=== PATIENT | male | born 1960 | race Caucasian/White ===

== ENCOUNTER 2017-08-25 14:24 | Inpatient (IN) | payer BC ==
[2017-08-25] VITALS (9 sets, daily range): BP systolic 103–128; BP diastolic 55–81
[~2017-08-25] VITALS: Ht 182.9 cm; Wt 150.7 kg
[~2017-08-25 14:24] MED LIST: AMLO5TAB2 PO; ASP325TEC PO; LISI40TA PO; LORA1TAB PO; TRIA0.253 PO
--- OUTSIDE RECORDS SUMMARY | 2017-08-25 14:29 | XMS REPORT | Continuity of Care Document ---
Author Author [facility] Organization [facility] Address Unknown Phone Unavailable Allergies Active Description Code Type Severity Reaction Onset Reported/Identified Relationship to Patient Clinical Status Yes No Allergy Information Available [id number] Drug Allergy Unknown N/A 03/16/2011 Medications Problems Date Dx Coded Attending Type Code Diagnosis Diagnosed By 03/16/2011 Ot 272.4 03/16/2011 Ot 278.00 03/16/2011 Ot 401.9 03/16/2011 Ot 414.01 03/16/2011 Ot 786.09 03/16/2011 Ot 786.50 03/16/2011 Ot V17.49 03/16/2011 Ot V58.69 03/16/2011 Ot V85.41 03/20/2013 MAMIE DAVILA MD Ot 327.23 03/20/2013 MAMIE DAVILA MD Ot 327.51 07/27/2015 Ot 272.4 07/27/2015 Ot 397.0 07/27/2015 Ot 401.9 07/27/2015 Ot 424.0 07/27/2015 Ot 429.3 07/27/2015 Ot 786.50 07/27/2015 MAMIE DAVILA MD Ot M79.1 07/27/2015 MAMIE DAVILA MD Ot R05 07/27/2015 MAMIE DAVILA MD Ot R50.9 08/04/2015 MAMIE DAVILA MD Ot M79.1 08/04/2015 MAMIE DAIVLA MD Ot R05 08/04/2015 MAMIE DAVILA MD Ot R50.9 08/31/2015 MAMIE DAVILA MD Ot J18.9 Procedures Results Encounters ACCT No. Visit Date/Time Discharge Status Pt. Type Provider Facility Loc./Unit Complaint [id number] 07/27/2015 15:36:00 2014 23:59:59 CLS Outpatient MAMIE DAVILA MD [facility] RAD [id number] 07/18/2015 16:27:00 2014 23:59:59 CLS Outpatient MAMIE DAVILA MD [facility] RAD [id number] 03/19/2013 20:04:00 2012 06:30:00 DIS Outpatient MAMIE DAVILA MD [facility] SLEEP [id number] 03/16/2011 08:08:00 Document Registration [id number] 03/06/2011 08:28:00 Document Registration
[2017-08-25] MEDS ORDERED: morphine INJ 10 MG/ML 1ML (SYR OR VIAL) IVP ONE (14:30)
[2017-08-25] MEDS ORDERED: ONDANSETRON 4 MG/2 ML (SDV) Z0FRAN IVP ONE (14:30)
--- NOTE | 2017-08-25 14:32 | ED General ---
General Stated Complaint: FALL Source of Information: Patient Exam Limitations: No Limitations History of Present Illness Time Seen by Provider: 14:32 Initial Comments To ER per private vehicle with reports of left sided chest wall pain. Patient was 4-5 feet up on a ladder trimming tree branches when one of the branches fell knocking the ladder from beneath him. He landed on his left side. He denies hitting his head or any neck pain. Complains of severe left-sided chest wall pain, worse with deep breathing as well as shortness of breath. Has some abrasions to the left arm. Timing/Duration: 1/2 Hour Severity: Moderate Associated Systoms: Shortness of Air Allergies and Home Medications Allergies Coded Allergies: No Allergy Information Available (Unverified , 03/16/11) Home Medications Amlodipine Besylate 5 Mg Tablet, 5 MG PO DAILY WITH SUPPER, (Reported) Lisinopril 40 Mg Tablet, 40 MG PO DAILY, (Reported) Trazodone HCl 100 Mg Tablet, (Reported) Zolpidem Tartrate 10 Mg Tablet, (Reported) Constitutional: see HPI EENTM: see HPI Respiratory: no symptoms reported Cardiovascular: no symptoms reported Genitourinary: no symptoms reported Musculoskeletal: no symptoms reported Skin: no symptoms reported Psychiatric/Neurological: No Symptoms Reported Hematologic/Lymphatic: No Symptoms Reported Past Ohjfjlx-Nkdkxp-Wfmbbo Hx Patient Social History Recent Foreign Travel: No Contact w/Someone Who Travel: No Physical Exam Vital Signs Vital Sign - Last 12Hours 08/25/17 08/25/17 14:24 15:30 Temp 98.0 Pulse 86 Resp 18 B/P (MAP) 104/81 (89) Pulse Ox 97 O2 Delivery Nasal Cannula O2 Flow Rate 2.00 Capillary Refill : General Appearance: No Apparent Distress, WD/WN Eyes: Bilateral Eye Normal Inspection, Bilateral Eye PERRL, Bilateral Eye EOMI HEENT: PERRL/EOMI, TMs Normal Neck: Full Range of Motion, Normal Inspection Respiratory: No Accessory Muscle Use, No Respiratory Distress, Other (slightly diminished sounds on the left, no crepitus upon palpation of the chest wall no abrasion or ecchymosis of the chest wall. However is exquisitely tender to the left lateral chest wall.) Gastrointestinal: Normal Bowel Sounds, Non Tender, Soft Neurologic/Psychiatric: Alert, Oriented x3, No Motor/Sensory Deficits Skin: Normal Color, Warm/Dry Progress/Results/Core Measures Suspected Sepsis SIRS Temperature: Pulse: Respiratory Rate: Laboratory Tests 08/25/17 14:25: White Blood Count 21.6H Blood Pressure / Mean: Laboratory Tests 08/25/17 14:25: Creatinine 1.05, Platelet Count 447H, Total Bilirubin 0.5 Results/Orders Lab Results Laboratory Tests Test 08/25/17 14:25 Range/Units White Blood Count 21.6 H 4.3-11.0 10^3/uL Red Blood Count 5.31 4.35-5.85 10^6/uL Hemoglobin 15.2 13.3-17.7 G/DL Hematocrit 46 40-54 % Mean Corpuscular Volume 87 80-99 FL Mean Corpuscular Hemoglobin 29 25-34 PG Mean Corpuscular Hemoglobin Concent 33 32-36 G/DL Red Cell Distribution Width 13.3 10.0-14.5 % Platelet Count 447 H 130-400 10^3/uL Mean Platelet Volume 9.7 7.4-10.4 FL Neutrophils (%) (Auto) 76 H 42-75 % Lymphocytes (%) (Auto) 19 12-44 % Monocytes (%) (Auto) 4 0-12 % Eosinophils (%) (Auto) 1 0-10 % Basophils (%) (Auto) 1 0-10 % Neutrophils # (Auto) 16.4 H 1.8-7.8 X 10^3 Lymphocytes # (Auto) 4.1 H 1.0-4.0 X 10^3 Monocytes # (Auto) 0.9 0.0-1.0 X 10^3 Eosinophils # (Auto) 0.2 0.0-0.3 10^3/uL Basophils # (Auto) 0.1 0.0-0.1 10^3/uL Neutrophils % (Manual) 81 % Lymphocytes % (Manual) 17 % Monocytes % (Manual) 2 % Blood Morphology Comment NORMAL Sodium Level 141 135-145 MMOL/L Potassium Level 4.0 3.6-5.0 MMOL/L Chloride Level 104 98-107 MMOL/L Carbon Dioxide Level 25 21-32 MMOL/L Anion Gap 12 5-14 MMOL/L Blood Urea Nitrogen 22 H 7-18 MG/DL Creatinine 1.05 0.60-1.30 MG/DL Estimat Glomerular Filtration Rate > 60 BUN/Creatinine Ratio 21 Glucose Level 181 H 70-105 MG/DL Calcium Level 9.9 8.5-10.1 MG/DL Total Bilirubin 0.5 0.1-1.0 MG/DL Aspartate Amino Transf (AST/SGOT) 22 5-34 U/L Alanine Aminotransferase (ALT/SGPT) 29 0-55 U/L Alkaline Phosphatase 45 40-136 U/L Total Protein 7.8 6.4-8.2 GM/DL Albumin 4.1 3.2-4.5 GM/DL My Orders Orders - TATY JUNG APRN Ct Chest/Abdomen/Pelvis W (08/25/17 14:29) Chest 1 View, Ap/Pa Only (08/25/17 14:29) Saline Lock/Iv-Start (08/25/17 14:29) Cbc With Automated Diff (08/25/17 14:29) Comprehensive Metabolic Panel (08/25/17 14:29) Morphine Injection (Morphine Injection (08/25/17 14:30) Ondansetron Injection (Zofran Injectio (08/25/17 14:30) Ns Iv 1000 Ml (Sodium Chloride 0.9%) (08/25/17 14:45) Humerus, Left, 2 Views (08/25/17 14:32) Manual Differential (08/25/17 14:25) Iohexol Injection (Omnipaque 350 Mg/Ml 1 (08/25/17 15:00) Ns (Ivpb) (Sodium Chloride 0.9% Ivpb Bag (08/25/17 15:00) Hydromorphone Injection (Dilaudid Inject (08/25/17 15:15) Oxygen-Administer 07,19 (08/25/17 15:06) Incentive Spirometryrt Initial (08/25/17 15:06) Incentive Spirometry (Nursing) Q2H (08/25/17 15:06) Hydromorphone Injection (Dilaudid Inject (08/25/17 15:30) Medications Given in ED Current Medications Medications Dose Ordered Sig/Rober Route Start Time Stop Time Status Last Admin Dose Admin Iohexol 100 ml ONCE ONCE IV 08/25/17 15:00 08/25/17 15:01 DC 08/25/17 14:58 100 ML Morphine Sulfate 5 mg ONCE ONCE IVP 08/25/17 14:30 08/25/17 14:31 DC 08/25/17 14:39 5 MG Ondansetron HCl 4 mg ONCE ONCE IVP 08/25/17 14:30 08/25/17 14:31 DC 08/25/17 14:38 4 MG Sodium Chloride 100 ml ONCE ONCE IV 08/25/17 15:00 08/25/17 15:01 DC 08/25/17 14:58 80 ML Vital Signs/I&O Vital Sign - Last 12Hours 08/25/17 08/25/17 14:24 15:30 Temp 98.0 Pulse 86 Resp 18 B/P (MAP) 104/81 (89) Pulse Ox 97 O2 Delivery Nasal Cannula O2 Flow Rate 2.00 Capillary Refill : Diagnostic Imaging Diagonstic Imaging: CT Comments ALEJANDRO: [facility] REC#: [id number] PT STATUS: ADM IN : 1960 PHYSICIAN: TATY JUNG APRN ADMIT DATE: 08/25/17/ICU Draft Date of Exam:08/25/17 CT CHEST/ABDOMEN/PELVIS W PROCEDURE: CT chest, abdomen, and pelvis with contrast. TECHNIQUE: Multiple contiguous axial images were obtained through the chest, abdomen, and pelvis after the administration of intravenous contrast. INDICATION: Fall, pain. COMPARISON: None available. FINDINGS: No significant adenopathy within the chest. No aneurysmal dilatation of the thoracic aorta. No pericardial effusion. No significant pleural effusion. Tiny left-sided pneumothorax is noted. No mediastinal shift. No right-sided pneumothorax. 8 mm pulmonary nodule is noted within the right middle lobe, series 2, image 24. Low lung volumes. Mild dependent atelectasis. No additional focal pulmonary opacity. Fatty infiltration of the liver. Cholecystectomy. The spleen is unremarkable. The adrenal glands are unremarkable. The pancreas is unremarkable. 1.7 cm hypodensity within the central aspect of the left kidney. Otherwise, the left kidney is unremarkable. The right kidney is unremarkable. No aneurysmal dilatation of the abdominal aorta. Moderate sized fat-containing umbilical hernia. The urinary bladder is unremarkable. Mild colonic diverticulosis without CT evidence of diverticulitis. The appendix is unremarkable. No bowel obstruction or pneumatosis. No significant adenopathy, free air or free fluid within the abdomen or pelvis. Nondisplaced acute left posterolateral fourth, fifth, and sixth rib fractures. Small amount of adjacent gas is seen by these fractures. No additional acute osseous abnormality. IMPRESSION: 1. Tiny left pneumothorax without evidence of tension phenomenon. This pneumothorax is secondary to nondisplaced acute left fourth, fifth and sixth rib fractures. 2. There is an 8 mm pulmonary nodule within the right middle lobe, of uncertain etiology. Comparison to prior imaging is recommended. If no prior imaging is available to demonstrate stability of this pulmonary nodule for greater than two years, then a followup CT of the chest is recommended in three months to monitor stability. 3. Additional findings as above. Dictated on workstation # [id number] Dict: 08/25/17 1516 Trans: 08/25/17 1559 [facility] [id number] Interpreted by: ASHLI MAI MD Electronically signed by: Departure Communication (Admissions) Time/Spoke to Admitting Phy: 15:33 Communication I discussed the case with Dr. Lopez. We will admit the patient, repeat chest x- ray in a.m. Impression Impression: Primary Impression: Pneumothorax, left Additional Impressions: Fall Left rib fracture Disposition: ADMITTED INPATIENT Condition: Stable Admissions Decision to Admit Reason: Admit from ER (General) Decision to Admit/Date: Aug 25, 2017 Time/Decision to Admit Time: 15:18 Departure-Patient Inst. Decision time for Depature: 15:18 Referrals: MAMIE DAVILA MD (PCP/Family) Primary Care Physician TATY JUNG APRN Aug 25, 2017 14:32
[2017-08-25 14:37] LABS: BASOPHILS # (AUTO) 0.1 10^3/uL (0.0-0.1); BASOPHILS % (AUTO) 1 % (0-10); EOSINOPHILS # (AUTO) 0.2 10^3/uL (0.0-0.3); EOSINOPHILS % (AUTO) 1 % (0-10); LYMPHOCYTES # (AUTO) 4.1 X 10^3 (1.0-4.0); LYMPHOCYTES % (AUTO) 19 % (12-44); MEAN CORPUSCULAR HEMOGLOBIN 29 PG (25-34); MEAN CORPUSCULAR HGB CONC 33 G/DL (32-36); MEAN CORPUSCULAR VOLUME 87 FL (80-99); MEAN PLATELET VOLUME 9.7 FL (7.4-10.4); MONOCYTES # (AUTO) 0.9 X 10^3 (0.0-1.0); MONOCYTES % (AUTO) 4 % (0-12); NEUTROPHILS # (AUTO) 16.4 X 10^3 (1.8-7.8); NEUTROPHILS % (AUTO) 76 % (42-75); PLATELET COUNT 447 10^3/uL (130-400); RED BLOOD COUNT 5.31 10^6/uL (4.35-5.85); RED CELL DISTRIBUTION WIDTH 13.3 % (10.0-14.5); WHITE BLOOD COUNT 21.6 10^3/uL (4.3-11.0)
[2017-08-25] MEDS ORDERED: NS IV 1000 ML 1,000 ML IV SCH (14:45)
[2017-08-25] MEDS ORDERED: ZOLP10TA5 PO (14:47)
[2017-08-25] MEDS ORDERED: TRAZ100T92 PO (14:47)
[2017-08-25 14:55] LABS: ALANINE AMINOTRANSFERASE 29 U/L (0-55); ALBUMIN 4.1 GM/DL (3.2-4.5); ANION GAP 12 MMOL/L (5-14); ASPARTATE AMINO TRANSFERASE 22 U/L (5-34); BILIRUBIN,TOTAL 0.5 MG/DL (0.1-1.0); BLOOD UREA NITROGEN 22 MG/DL (7-18); BUN/CREATININE RATIO 21; CALCIUM 9.9 MG/DL (8.5-10.1); CARBON DIOXIDE 25 MMOL/L (21-32); CHLORIDE 104 MMOL/L (98-107); CREATININE SERUM 1.05 MG/DL (0.60-1.30); GFR ESTIMATED > 60; GLUCOSE 181 MG/DL (70-105); SODIUM 141 MMOL/L (135-145); TOTAL PROTEIN 7.8 GM/DL (6.4-8.2)
[2017-08-25] MEDS ORDERED: NS 100 ML (IVPB) BAG IV ONE (15:00)
[2017-08-25] MEDS ORDERED: IOHEXOL 350 MG/ML 100 ML (OMNIPAQUE 350) VIAL IV ONE (15:00)
[2017-08-25 15:01] LABS: LYMPHOCYTES % (MANUAL) 17 %; NEUTROPHILS % (MANUAL) 81 %
[2017-08-25] MEDS ORDERED: HYDROmorphone (DILAUDID) 2 MG/ML VIAL IVP PRN ×2 (15:15→15:30)
--- NOTE | 2017-08-25 15:51 | Diagnostic Imaging Report ---
INDICATION: Injury, fall, pain. EXAMINATION: Left humerus, 08/25/2017. FINDINGS: There is no evidence for an acute fracture involving the humerus. The visualized joint spaces are intact. Minimal spurring is seen at the acromioclavicular joint. There appear to be left posterior rib fractures, please see separate chest x-ray report. IMPRESSION: 1. No evidence for an acute process within the humerus. 2. Multiple left posterior rib fractures partially imaged on this examination. Dictated by: Dictated on workstation # [id number]
--- NOTE | 2017-08-25 15:54 | Diagnostic Imaging Report ---
INDICATION: Fell from ladder, chest pain, rib pain. EXAMINATION: Chest dated 08/25/2017. FINDINGS: Multiple left posterior rib fractures noted, likely involving the fourth and fifth ribs. Possible involvement of the sixth rib, nondisplaced in nature. There is a small amount of fluid at the left lung base. Atelectasis, medially, at both lung bases is also noted. A very tiny left apical pneumothorax is suspected. IMPRESSION: Multiple left posterior rib fractures with suspected small left apical pneumothorax. Findings were called to the ER by Dr. Velazquez 08/25/2017 at 3:13 p.m. Dictated by: Dictated on workstation # [id number]
--- NOTE | 2017-08-25 15:59 | Diagnostic Imaging Report ---
PROCEDURE: CT chest, abdomen, and pelvis with contrast. TECHNIQUE: Multiple contiguous axial images were obtained through the chest, abdomen, and pelvis after the administration of intravenous contrast. INDICATION: Fall, pain. COMPARISON: None available. FINDINGS: No significant adenopathy within the chest. No aneurysmal dilatation of the thoracic aorta. No pericardial effusion. No significant pleural effusion. Tiny left-sided pneumothorax is noted. No mediastinal shift. No right-sided pneumothorax. 8 mm pulmonary nodule is noted within the right middle lobe, series 2, image 24. Low lung volumes. Mild dependent atelectasis. No additional focal pulmonary opacity. Fatty infiltration of the liver. Cholecystectomy. The spleen is unremarkable. The adrenal glands are unremarkable. The pancreas is unremarkable. 1.7 cm hypodensity within the central aspect of the left kidney. Otherwise, the left kidney is unremarkable. The right kidney is unremarkable. No aneurysmal dilatation of the abdominal aorta. Moderate sized fat-containing umbilical hernia. The urinary bladder is unremarkable. Mild colonic diverticulosis without CT evidence of diverticulitis. The appendix is unremarkable. No bowel obstruction or pneumatosis. No significant adenopathy, free air or free fluid within the abdomen or pelvis. Nondisplaced acute left posterolateral fourth, fifth, and sixth rib fractures. Small amount of adjacent gas is seen by these fractures. No additional acute osseous abnormality. IMPRESSION: 1. Tiny left pneumothorax without evidence of tension phenomenon. This pneumothorax is secondary to nondisplaced acute left fourth, fifth and sixth rib fractures. 2. There is an 8 mm pulmonary nodule within the right middle lobe, of uncertain etiology. Comparison to prior imaging is recommended. If no prior imaging is available to demonstrate stability of this pulmonary nodule for greater than two years, then a followup CT of the chest is recommended in three months to monitor stability. 3. Additional findings as above. Dictated by: Dictated on workstation # [id number]
[2017-08-25] MEDS ORDERED: diphenhydrAMINE 50 MG/ML INJ (BENADRYL) IV PRN (16:30)
[2017-08-25] MEDS ORDERED: TETANUS,DIPTH,PERTUSS P/F (BOOSTRIX) 0.5 ML VIAL IM ONE (16:30)
[2017-08-25] MEDS ORDERED: METOCLOPRAMIDE INJ 10 MG/2 ML (REGLAN) IV PRN (16:30)
[2017-08-25] MEDS ORDERED: NALOXONE 0.4 MG/ML 1 ML (NARCAN) VIAL IV PRN (16:30)
[2017-08-25] MEDS: HYDROmorphone PCA 0.2 MG/ML 30 ML (DILAUDID) IV PRN (16:35)
[2017-08-25] MEDS: NS IV 500 ML PCA CARRIER FLUID IV SCH (16:39)
[2017-08-25] MEDS: lisINopril 20 MG (ZESTRIL) TAB PO SCH (16:41)
[2017-08-25] MEDS: NS IV 1000 ML 1,000 ML IV SCH (16:41)
[2017-08-25] MEDS ORDERED: AMLO10TA2 PO (16:48)
[2017-08-25] MEDS ORDERED: LISI40TA PO (16:48)
[2017-08-25] MEDS ORDERED: RT-ALBUTEROL SULF 2.5 MG/3 ML PRE-MIX VIAL IH PRN (20:15)
[2017-08-25] MEDS ORDERED: ZOLPIDEM 5 MG (AMBIEN) TAB PO PRN (21:00)
--- NOTE | 2017-08-25 21:36 | HISTORY AND PHYSICAL ---
DATE OF SERVICE: DATE OF ADMISSION: 08/25/2017 ATTENDING PRIMARY CARE PHYSICIAN: Olga Matamoros M.D. HISTORY OF PRESENT ILLNESS: The patient is a 57-year-old male who was working outside cutting tree limbs on an 8-foot ladder. He reports that he was probably in the middle portion and he was using a chainsaw and one of the branches along with another one hit the legs of the ladder causing him to lose balance and falling back on his left shoulder. He reports that he was short of breath momentarily, but he was able to ambulate immediately. He finished his chores and went home; however, states that the pain in the chest persisted and even worsened. Due to the pain, it was difficult to catch his breath as well. A CT scan was performed, which did show nondisplaced fractures in the posterolateral segments of ribs 3 through 6. There was also a very small sliver of pneumothorax. Since being admitted, he has been placed on Dilaudid [employer], which has helped control his pain. He does not report any loss of consciousness or any visual changes. He does not have any other distracting injuries. His Yee coma scale was 15. PAST MEDICAL HISTORY: Hypertension. PAST SURGICAL HISTORY: Laparoscopic cholecystectomy. ALLERGIES: No known drug allergies. MEDICATIONS: Amlodipine 5 mg daily, lisinopril 40 mg daily, trazodone 100 mg each day at bedtime, zolpidem 10 mg each day at bedtime. SOCIAL HISTORY: Negative smoke, negative alcohol. FAMILY HISTORY: Father with some unknown form of cancer, diagnosed at advanced stage. VITAL SIGNS: Temperature 98.0, blood pressure 104/81, pulse 81, respirations 18, pulse ox 97% on 2 liters nasal cannula. REVIEW OF SYSTEMS: This is a well-nourished male, currently in no acute distress. He is not experiencing any shortness of breath or difficulty in breathing. No chest pain along the left lateral chest, especially upon deep inspiration. He is not short of breath at rest; however, with ambulation he feels that he is experiencing muscle spasms and increased pain. No nausea, vomiting. No diarrhea, constipation. No fever, chills. No recent inadvertent weight loss. All other review of systems negative. PHYSICAL EXAMINATION: CHEST: Good breath sounds bilaterally. No crepitance. HEART: Regular, no murmurs. EXTREMITIES: No lower extremity edema. Negative Homans sign. HEENT: No scleral icterus. NECK: No cervical lymphadenopathy. ABDOMEN: Soft, nontender, nondistended. SKIN: Warm, dry. ASSESSMENT AND PLAN: A 57-year-old male with approximately a 4-foot fall onto his left posterior and lateral chest resulting in nondisplaced fractures posterolaterally of ribs 3 through 6 and a very small pneumothorax. We will treat it conservatively with incentive spirometer, MAP protocol and adequate pain control with Dilaudid [employer] as well as oral pain medication. We will also get a followup chest x-ray. Once he is ambulating well with adequate pain control with oral pain medication, we will discharge him home. We will continue to follow serial chest x-rays as well. Job ID: [id number] DocumentID: [id number] Dictated Date: 08/25/2017 17:21:21 [employer] Date: 08/25/2017 18:37:20 Dictated By: RUDY PA MD
[2017-08-25] MEDS: CYCLOBENZAPRINE 10 MG (FLEXERIL) TAB PO PRN (21:43)
[2017-08-25] MEDS: amLODIPine 5 MG (NORVASC) TAB PO SCH (21:43)
[2017-08-25] MEDS: oxyCODONE/APAP 7.5-325 MG (PERCOCET 7.5) TABLET PO PRN (21:43)
[2017-08-26] VITALS (18 sets, daily range): BP systolic 110–141; BP diastolic 58–77
[2017-08-26] MEDS: NS IV 1000 ML 1,000 ML IV SCH ×2 (02:38→12:59)
[2017-08-26 05:24] LABS: BASOPHILS % (AUTO) 0 % (0-10); EOSINOPHILS # (AUTO) 0.1 10^3/uL (0.0-0.3); EOSINOPHILS % (AUTO) 0 % (0-10); LYMPHOCYTES # (AUTO) 4.6 X 10^3 (1.0-4.0); LYMPHOCYTES % (AUTO) 24 % (12-44); MEAN CORPUSCULAR HEMOGLOBIN 29 PG (25-34); MEAN CORPUSCULAR HGB CONC 33 G/DL (32-36); MEAN CORPUSCULAR VOLUME 88 FL (80-99); MEAN PLATELET VOLUME 10.3 FL (7.4-10.4); MONOCYTES # (AUTO) 1.4 X 10^3 (0.0-1.0); MONOCYTES % (AUTO) 7 % (0-12); NEUTROPHILS # (AUTO) 13.7 X 10^3 (1.8-7.8); NEUTROPHILS % (AUTO) 69 % (42-75); PLATELET COUNT 393 10^3/uL (130-400); RED BLOOD COUNT 5.01 10^6/uL (4.35-5.85); RED CELL DISTRIBUTION WIDTH 13.7 % (10.0-14.5); WHITE BLOOD COUNT 19.7 10^3/uL (4.3-11.0)
[2017-08-26 05:39] LABS: ANION GAP 11 MMOL/L (5-14); BLOOD UREA NITROGEN 20 MG/DL (7-18); BUN/CREATININE RATIO 24; CALCIUM 8.7 MG/DL (8.5-10.1); CARBON DIOXIDE 24 MMOL/L (21-32); CHLORIDE 103 MMOL/L (98-107); CREATININE SERUM 0.84 MG/DL (0.60-1.30); GFR ESTIMATED > 60; GLUCOSE 134 MG/DL (70-105); MAGNESIUM 2.1 MG/DL (1.8-2.4); PHOSPHORUS 2.9 MG/DL (2.3-4.7); POTASSIUM 4.1 MMOL/L (3.6-5.0); SODIUM 138 MMOL/L (135-145)
[2017-08-26] MEDS: MAGNESIUM 1 GM/100 ML IVPB 100 ML IV SCH (05:43)
[2017-08-26] MEDS: KCL 20 MEQ TAB (K-DUR) PO SCH (05:43)
[2017-08-26] MEDS: POTASSIUM CL 10MEQ/50ML IVPB 50 ML IV SCH (05:43)
[2017-08-26] MEDS: RT-ALBUTEROL SULF 2.5 MG/3 ML PRE-MIX VIAL IH SCH ×4 (06:51→20:43)
[2017-08-26] MEDS: HYDROmorphone PCA 0.2 MG/ML 30 ML (DILAUDID) IV PRN (07:11)
--- NOTE | 2017-08-26 07:38 | Diagnostic Imaging Report ---
INDICATION: Pneumothorax. Portable AP upright view of the chest is obtained. Comparison is made to study of one day earlier. There is suboptimal inspiration. Overall heart size and pulmonary vascularity are within normal limits. There is no evidence of pneumothorax or focal consolidation. IMPRESSION: No definite pneumothorax or other acute abnormalities identified on limited study. Dictated by: Dictated on workstation # [id number]
[2017-08-26] MEDS: oxyCODONE/APAP 7.5-325 MG (PERCOCET 7.5) TABLET PO PRN ×3 (09:15→22:45)
[2017-08-26] MEDS ORDERED: INFLUENZA TRIvalent 2017-2018 0.5 ML/45 MCG SYR IM ONE (09:15)
[2017-08-26] MEDS: NS IV 500 ML PCA CARRIER FLUID IV SCH (09:16)
[2017-08-26] MEDS: lisINopril 20 MG (ZESTRIL) TAB PO SCH (09:16)
[2017-08-26] MEDS: SENNA W/DOCUSATE (SENOKOT S) TABLET PO SCH ×2 (09:16→09:18)
--- NOTE | 2017-08-26 15:12 | Progress Note (SOAP) ---
Subjective Date Seen by Provider: Aug 26, 2017 Time Seen by Provider: 14:30 Subjective/Events-last exam doing well. pain better controlled. no SOB but decreased O2 sat at night most likely secondary sleep apnea. ambulating well. Objective Exam Vital Signs Date Time Temp Pulse Resp B/P (MAP) Pulse Ox O2 Delivery O2 Flow Rate FiO2 08/26/17 15:00 68 24 116/68 (84) 97 Nasal Cannula 2.00 08/26/17 14:17 73 18 119/67 (84) 96 Nasal Cannula 2.00 08/26/17 14:10 94 Nasal Cannula 1.00 08/26/17 13:00 63 08/26/17 13:00 64 20 121/77 (92) 97 Nasal Cannula 1.00 08/26/17 12:00 58 13 110/67 (81) 95 Room Air 08/26/17 11:32 97 Nasal Cannula 2.00 08/26/17 11:21 97.7 08/26/17 11:00 59 15 114/58 (76) 93 Room Air 08/26/17 10:25 86 Room Air 08/26/17 10:00 73 24 133/69 (90) 94 Room Air 08/26/17 09:19 97 Room Air 08/26/17 09:00 68 17 120/65 (83) 98 Nasal Cannula 2.00 08/26/17 08:00 79 26 128/74 (92) 97 Nasal Cannula 2.00 08/26/17 08:00 97 Nasal Cannula 2.00 08/26/17 07:11 25 08/26/17 07:00 72 22 126/76 (93) 97 Nasal Cannula 2.00 08/26/17 07:00 72 08/26/17 06:51 96 Nasal Cannula 2.00 08/26/17 06:00 73 25 115/66 (82) 97 Nasal Cannula 2.00 08/26/17 05:30 67 19 126/62 (83) 96 Nasal Cannula 2.00 08/26/17 04:13 97.2 08/26/17 04:00 97 Nasal Cannula 2.00 08/26/17 04:00 87 20 141/74 (96) 97 Nasal Cannula 2.00 08/26/17 03:00 61 16 130/71 (90) 100 Nasal Cannula 2.00 08/26/17 02:00 67 21 124/72 (89) 96 Nasal Cannula 2.00 08/26/17 01:00 81 22 128/68 (88) 96 Nasal Cannula 2.00 08/26/17 01:00 81 08/26/17 00:18 99.0 08/26/17 00:00 97 Nasal Cannula 2.00 08/26/17 00:00 70 19 118/62 (80) 96 Nasal Cannula 2.00 08/25/17 23:00 72 19 122/67 (85) 96 Nasal Cannula 2.00 08/25/17 22:00 74 24 109/55 (73) 98 Nasal Cannula 2.00 08/25/17 21:00 74 17 114/62 (79) 96 Nasal Cannula 2.00 08/25/17 20:00 97 Nasal Cannula 2.00 08/25/17 20:00 76 18 107/58 (74) 97 Nasal Cannula 2.00 08/25/17 19:57 78 98 28 08/25/17 19:00 81 34 122/81 (95) 98 Nasal Cannula 2.00 08/25/17 19:00 81 08/25/17 19:00 99.8 Nasal Cannula 2.00 08/25/17 18:00 78 20 112/67 (82) 95 Nasal Cannula 2.00 08/25/17 17:00 80 18 103/65 (78) 97 Nasal Cannula 2.00 08/25/17 16:38 90 Nasal Cannula 2.00 08/25/17 16:35 23 08/25/17 16:17 78 08/25/17 16:10 Room Air 08/25/17 16:10 99.7 77 23 128/71 (90) 98 Nasal Cannula 2.00 08/25/17 16:00 84 16 99 Nasal Cannula 2.00 08/25/17 15:30 Nasal Cannula 2.00 I & O 08/26/17 07:00 Intake Total 1675 ml Output Total 0 ml Balance 1675 ml Capillary Refill : Less Than 3 SecondsLess Than 3 Seconds General Appearance: No Apparent Distress HEENT: PERRL/EOMI Neck: Full Range of Motion Respiratory: Decreased Breath Sounds Cardiovascular: Regular Rate, Rhythm Gastrointestinal: normal bowel sounds, non tender, soft Extremity: Normal Capillary Refill Neurologic/Psychiatric: Alert, Oriented x3 Skin: Normal Color Lymphatic: No Adenopathy Results Lab Laboratory Tests 08/26/17 04:35: White Blood Count 19.7H, Red Blood Count 5.01, Hemoglobin 14.5, Hematocrit 44, Mean Corpuscular Volume 88, Mean Corpuscular Hemoglobin 29, Mean Corpuscular Hemoglobin Concent 33, Red Cell Distribution Width 13.7, Platelet Count 393, Mean Platelet Volume 10.3, Neutrophils (%) (Auto) 69, Lymphocytes (%) (Auto) 24 , Monocytes (%) (Auto) 7, Eosinophils (%) (Auto) 0, Basophils (%) (Auto) 0, Neutrophils # (Auto) 13.7H, Lymphocytes # (Auto) 4.6H, Monocytes # (Auto) 1.4H, Eosinophils # (Auto) 0.1, Basophils # (Auto) 0.0, Sodium Level 138, Potassium Level 4.1, Chloride Level 103, Carbon Dioxide Level 24, Anion Gap 11, Blood Urea Nitrogen 20H, Creatinine 0.84, Estimat Glomerular Filtration Rate > 60, BUN /Creatinine Ratio 24, Glucose Level 134H, Calcium Level 8.7, Phosphorus Level 2.9, Magnesium Level 2.1 Assessment/Plan Assessment/Plan Assess & Plan/Chief Complaint trauma-fall with left multiple rib fx. transfer to floor. increase ambulation. sleep study as outpatient. Clinical Quality Measures DVT/VTE Risk/Contraindication: Risk Factor Score Per Nursin RFS Level Per Nursing on Admit: 2=Moderate RUDY PA MD Aug 26, 2017 3:12 pm
[2017-08-26] MEDS: amLODIPine 5 MG (NORVASC) TAB PO SCH (21:23)
[2017-08-26] MEDS: CYCLOBENZAPRINE 10 MG (FLEXERIL) TAB PO PRN (22:40)
[2017-08-27] VITALS: BP 110/60
[2017-08-27] MEDS: NS IV 500 ML PCA CARRIER FLUID IV SCH (01:54)
[2017-08-27] MEDS: HYDROmorphone PCA 0.2 MG/ML 30 ML (DILAUDID) IV PRN (03:27)
[2017-08-27 04:00] VITALS: BP 125/59
[2017-08-27] MEDS: oxyCODONE/APAP 7.5-325 MG (PERCOCET 7.5) TABLET PO PRN ×2 (06:36→12:17)
[2017-08-27] MEDS: POTASSIUM CL 10MEQ/50ML IVPB 50 ML IV SCH (06:36)
[2017-08-27] MEDS: MAGNESIUM 1 GM/100 ML IVPB 100 ML IV SCH (06:36)
[2017-08-27] MEDS: KCL 20 MEQ TAB (K-DUR) PO SCH (06:37)
[2017-08-27] MEDS: RT-ALBUTEROL SULF 2.5 MG/3 ML PRE-MIX VIAL IH SCH ×2 (07:01→11:27)
[2017-08-27 08:00] VITALS: BP 126/69
[2017-08-27] MEDS: SENNA W/DOCUSATE (SENOKOT S) TABLET PO SCH (08:44)
[2017-08-27] MEDS: lisINopril 20 MG (ZESTRIL) TAB PO SCH (08:44)
[2017-08-27 12:00] VITALS: BP 122/63
[2017-08-27 12:07] LABS: MEAN PLATELET VOLUME 9.6 FL (7.4-10.4); RED BLOOD COUNT 4.95 10^6/uL (4.35-5.85); RED CELL DISTRIBUTION WIDTH 13.7 % (10.0-14.5)
[2017-08-27] MEDS ORDERED: fentaNYL INJECTION 100 MCG/2 ML AMP IVP PRN (12:15)
--- NOTE | 2017-08-27 12:52 | Progress Note (SOAP) ---
Subjective Date Seen by Provider: Aug 27, 2017 Time Seen by Provider: 12:00 Subjective/Events-last exam doing well. ambulating better. pain better controlled with PO pain meds. Objective Exam Vital Signs Date Time Temp Pulse Resp B/P (MAP) Pulse Ox O2 Delivery O2 Flow Rate FiO2 08/27/17 11:27 91 Room Air 08/27/17 08:40 95 Nasal Cannula 2.00 08/27/17 08:00 100.0 95 18 126/69 (88) 90 Nasal Cannula 2.00 08/27/17 07:01 86 Room Air 08/27/17 07:00 20 08/27/17 04:00 98.4 76 18 125/59 (81) 94 Nasal Cannula 2.00 08/27/17 03:27 15 08/27/17 00:00 97.3 63 15 110/60 (77) 95 Nasal Cannula 2.00 08/26/17 21:15 94 Nasal Cannula 08/26/17 20:59 98.7 93 16 131/67 (88) 89 Nasal Cannula 2.00 08/26/17 20:43 94 Nasal Cannula 2.00 08/26/17 20:00 95 Nasal Cannula 2.00 08/26/17 16:00 98.9 79 22 141/68 (92) 94 Nasal Cannula 2.00 08/26/17 15:00 68 24 116/68 (84) 97 Nasal Cannula 2.00 08/26/17 14:17 73 18 119/67 (84) 96 Nasal Cannula 2.00 08/26/17 14:10 94 Nasal Cannula 1.00 08/26/17 13:00 63 08/26/17 13:00 64 20 121/77 (92) 97 Nasal Cannula 1.00 I & O 08/27/17 07:00 Intake Total 2587 ml Balance 2587 ml Capillary Refill : Less Than 3 SecondsLess Than 3 Seconds General Appearance: No Apparent Distress HEENT: PERRL/EOMI Neck: Full Range of Motion Respiratory: Lungs Clear, Normal Breath Sounds Cardiovascular: Regular Rate, Rhythm Gastrointestinal: normal bowel sounds, non tender, soft Extremity: Normal Capillary Refill Neurologic/Psychiatric: Alert, Oriented x3 Skin: Normal Color Lymphatic: No Adenopathy Results Lab Laboratory Tests 08/27/17 11:56: White Blood Count 16.0H, Red Blood Count 4.95, Hemoglobin 14.3, Hematocrit 44, Mean Corpuscular Volume 89, Mean Corpuscular Hemoglobin 29, Mean Corpuscular Hemoglobin Concent 33, Red Cell Distribution Width 13.7, Platelet Count 368, Mean Platelet Volume 9.6 Assessment/Plan Assessment/Plan Assess & Plan/Chief Complaint trauma-fall with left multiple rib fx. transfer to floor. increase ambulation. sleep study as outpatient. Clinical Quality Measures DVT/VTE Risk/Contraindication: Risk Factor Score Per Nursin RFS Level Per Nursing on Admit: 2=Moderate RUDY PA MD Aug 27, 2017 12:52 pm
[2017-08-27] MEDS ORDERED: [UNRECOGNIZED DRUG - OTHER] PO (13:50)
[2017-08-27] MEDS ORDERED: OXYC-202 PO (13:50)
[2017-08-27 15:11] VITALS: BP 122/63
== END 2017-08-27 14:25 | disposition home or self-care (01) | DRG 184 ==
LOC: EDUNIT# 14:24 → ER 14:25 → ICU 15:09 → 4TH 08-26 15:30
PROVIDERS: ADMIT Surgery; ATTEND Surgery
DX: S22.42XA Multiple fractures of ribs, left side, initial encounter for closed fracture (principal); S27.0XXA Traumatic pneumothorax, initial encounter; I10 Essential (primary) hypertension; W11.XXXA Fall on and from ladder, initial encounter; Z23 Encounter for immunization
CPT/HCPCS: 36415; 71010; 71260; 73060; 74177; 80048; 80053; 83735; 84100; 85007; 85025; 85027; 90715; 94640; 94664; 94760

== ENCOUNTER → 2017-09-11 | Outpatient (CLI) | payer BC ==
[~2017-09-11] MED LIST changes: +AMLO10TA2 PO; +OXYC-202 PO; +TRAZ100T92 PO; +ZOLP10TA5 PO; +[UNRECOGNIZED DRUG - OTHER] PO
--- NOTE | 2017-09-11 08:13 | Diagnostic Imaging Report ---
PA and lateral views of the chest. INDICATION: History of fall and pneumothorax. FINDINGS: There is no pneumothorax at this time. There is left basilar infiltrate or atelectasis and small left effusion. The heart size is normal. No pneumothorax. The mediastinum and tyson appear unremarkable. IMPRESSION: There is left basilar infiltrate or atelectasis and small left effusion. Dictated by: Dictated on workstation # [id number]
== END ==
LOC: RAD 07:38
PROVIDERS: ATTEND Surgery
DX: J90 Pleural effusion, not elsewhere classified (principal); Z91.81 History of falling
CPT/HCPCS: 71020